=== PATIENT | female | born 1980 | race Caucasian/White ===

== ENCOUNTER 2018-05-25 16:47 | Emergency (ER) | payer OTHER ==
--- NOTE | 2018-05-25 16:57 | NUR ---
PER REGISTRATION, PT LEFT FROM THE LOBBY STATING, "I DON'T HAVE TIME FOR THIS. I'M GOING TO [place]."
== END 2018-05-25 17:00 | disposition left against medical advice (07) ==
LOC: ED 16:49
DX: R07.89 Other chest pain (principal); Z53.21 Procedure and treatment not carried out due to patient leaving prior to being seen by health care provider